=== PATIENT | female | born 1955 | race American Indian/Alaskan Native ===

== ENCOUNTER 2017-08-12 12:47 | Emergency (ER) | payer OTHER ==
[2017-08-12 12:47] VITALS: BMI 37.5
[2017-08-12 13:21] VITALS: BP 110/73; PULSE 79; RESP 18; TEMP 98.4; O2SAT 100
--- NOTE | 2017-08-12 13:45 | ED PDOC ---
HPI: Back Time Seen by Provider: 08/12/17 13:23 Chief Complaint (Nursing): Back Pain Chief Complaint (Provider): Back Pain History Per: Patient History/Exam Limitations: no limitations Onset/Duration Of Symptoms: Days (x4) Current Symptoms Are (Timing): Still Present Additional Complaint(s): Inna Cuellar is a 62 year old female who presents to the ED complaining of lower back pain ongoing for 4 days. Patient states the pain began when she leaned over a table 4 days ago and felt she pulled a muscle in her low back. She took Tylenol which once since onset of pain and this has not helped. Patient denies any radiation of pain to lower extremities. She denies any bowel or bladder dysfunction. Patient uses a cane at baseline due to knee pain from RA. PMD: Ayush Ken MD Past Medical History Reviewed: Historical Data, Nursing Documentation, Vital Signs Vital Signs: Last Vital Signs Temp 98.4 F 08/12/17 13:18 Pulse 79 08/12/17 13:18 Resp 18 08/12/17 13:18 BP 110/73 08/12/17 13:18 Pulse Ox 100 08/12/17 13:18 - Medical History PMH: CHF, COPD, Depression, Gastritis, HTN, Hypercholesterolemia, Rheumatoid Arthritis, Sleep Apnea Denies: Seizures (BUT TAKES SEIZURE MED. PROPHYLACTICALLY) - Surgical History Surgical History: Endoscopy, Pacemaker Other surgeries: Thyroidectomy, Hysterectomy, Brain aneurysm repair - Family History Family History: States: No Known Family Hx - Living Arrangements Living Arrangements: With Family - Social History Current smoker - smoking cessation education provided: No Alcohol: None Drugs: Denies - Home Medications Home Medications: Ambulatory Orders Medication Instructions Recorded Albuterol 0.083% [Albuterol 0.083% 1 inh NEB Q4H PRN 03/31/16 Inhal Marlin (2.5 mg/3 ml) UD] Aspirin [Adult Low Dose Aspirin EC] 81 mg PO DAILY 03/31/16 Atorvastatin Calcium [Lipitor] 20 mg PO HS 03/31/16 Carvedilol [Coreg] 25 mg PO BID 03/31/16 Cetirizine HCl [All Day Allergy 10 mg PO DAILY 03/31/16 Relief] Cholecalciferol (Vitamin D3) 1,000 iu PO DAILY 03/31/16 [Vitamin D3] Docusate [Colace] 2 cap PO HS 03/31/16 Ferrous Sulfate [Feosol] 325 mg PO TID 03/31/16 Furosemide [Lasix] 40 mg PO DAILY 03/31/16 Isosorbide Dinitrate [Isordil] 10 mg PO TID 03/31/16 Ketorolac Tromethamine [Toradol] 10 mg PO PRN PRN #20 tab 03/31/16 Levothyroxine Sodium [Synthroid] 112 mcg PO DAILY 03/31/16 Metoclopramide [Reglan] 5 mg PO BID 03/31/16 Mometasone [Asmanex Twisthaler 220 2 puff INH BID 03/31/16 MCG] Mometasone/Formoterol [Dulera 200 2 puff INH DAILY 03/31/16 Mcg/5 Mcg Inhaler] Montelukast Sodium [Singulair] 10 mg PO DAILY 03/31/16 Multivitamin/Iron/Folic Acid 1 tab PO DAILY 03/31/16 [Certavite-Antioxidant Tablet] OXcarbazepine [Trileptal] 600 mg PO BID 03/31/16 Omeprazole [Prilosec] 20 mg PO DAILY 03/31/16 Oxybutynin Chloride [Oxybutynin 15 mg PO DAILY 03/31/16 Chloride ER] Potassium Chloride [Klor-Con 10] 10 meq PO DAILY 03/31/16 amLODIPine [Norvasc] 5 mg PO DAILY 03/31/16 Losartan/Hydrochlorothiazide 1 tab PO DAILY 01/27/17 [Losartan-Hctz 100-25 mg Tab] Mometasone [Asmanex Twisthaler 220 2 puff INH DAILY PRN 01/27/17 MCG] Cyclobenzaprine HCl 5 mg PO TID #20 tablet 08/12/17 Lidocaine 5% [Lidoderm] 1 ea TD DAILY #30 patch 08/12/17 - Allergies Allergies/Adverse Reactions: Allergies Allergy/AdvReac Type Severity Reaction Status Date / Time naproxen Allergy Severe HEADACHE Verified 01/27/17 08:50 metronidazole Allergy Mild ITCHING Verified 01/27/17 08:50 Penicillins Allergy Mild ITCHING Verified 01/27/17 08:50 Review of Systems ROS Statement: Except As Marked, All Systems Reviewed And Found Negative Genitourinary Female: Negative for: Dysuria, Frequency, Incontinence Musculoskeletal: Positive for: Back Pain. Negative for: Leg Pain Physical Exam - Reviewed Nursing Documentation Reviewed: Yes Vital Signs Reviewed: Yes - Physical Exam Appears: Positive for: Well, Non-toxic, No Acute Distress Head Exam: Positive for: ATRAUMATIC, NORMAL INSPECTION, NORMOCEPHALIC Skin: Positive for: Normal Color. Negative for: Rash Eye Exam: Positive for: Normal appearance Neck: Positive for: Painless ROM Cardiovascular/Chest: Positive for: Regular Rate, Rhythm Respiratory: Positive for: Normal Breath Sounds Back: Positive for: Other (negative bilateral straight leg raise). Negative for : Normal Inspection (Tenderness/muscle spasm across lower lumbar region), L CVA Tenderness, R CVA Tenderness Neurologic/Psych: Positive for: Alert, Oriented - ECG O2 Sat by Pulse Oximetry: 100 (RA) Pulse Ox Interpretation: Normal Medical Decision Making Medical Decision Making: Time: 13:51 Initial Impression: 62 year old female with back strain Plan: --Tylenol 975 mg PO --Reevaluation Will d/c with rx flexeril and lidoderm patch. Patient was instructed to continue with tylenol in addition to rx meds. 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 Scribe Attestation: Documented by Simon Zaldivar, acting as a scribe for Natalia Mobley PA-C Provider Scribe Attestation: All medical record entries made by the Scribe were at my direction and personally dictated by me. I have reviewed the chart and agree that the record accurately reflects my personal performance of the history, physical exam, medical decision making, and the department course for this patient. I have also personally directed, reviewed, and agree with the discharge instructions and disposition. Disposition - Clinical Impression Clinical Impression: Back strain - Patient ED Disposition Is Patient to be Admitted: No Counseled Patient/Family Regarding: Diagnosis, Need For Followup, Rx Given - Disposition Referrals: Mario Alberto Mcgill III, MD [Staff Provider] - Disposition: Routine/Home Disposition Time: 15:13 Condition: STABLE Additional Instructions: Take over the counter tylenol every 4-6 hrs along with rx meds as directed as needed for pain. Follow up with primary care doctor or with orthopedist for any persistent symptoms. Prescriptions: Cyclobenzaprine HCl 5 mg PO TID #20 tablet Lidocaine 5% [Lidoderm] 1 ea TD DAILY #30 patch Instructions: Back Pain (ED), Muscle Strain (ED) Forms: [employer] ([place])
== END 2017-08-12 16:40 | disposition home or self-care (01) ==
LOC: H.ER 12:47
DX: M54.9 Dorsalgia, unspecified (principal); E78.00 Pure hypercholesterolemia, unspecified; F32.9 Major depressive disorder, single episode, unspecified; I11.0 Hypertensive heart disease with heart failure; I50.9 Heart failure, unspecified; J44.9 Chronic obstructive pulmonary disease, unspecified; M06.9 Rheumatoid arthritis, unspecified; Z79.82 Long term (current) use of aspirin; Z88.0 Allergy status to penicillin; Z95.0 Presence of cardiac pacemaker